=== PATIENT | male | born 1965 | race Asian ===

== ENCOUNTER 2019-04-20 07:48 | Day surgery (SDC) | payer OTHER ==
[2019-04-20] MEDS ORDERED: HYDROCORTISONE 100 MG INJ IV (09:00)
[2019-04-20] MEDS ORDERED: PROPOFOL 40 ML (09:28)
== END 2019-04-20 10:16 | disposition home or self-care (01) ==
LOC: GIL 07:48
DX: Z12.11 Encounter for screening for malignant neoplasm of colon (principal); K64.9 Unspecified hemorrhoids; G40.909 Epilepsy, unspecified, not intractable, without status epilepticus
CPT/HCPCS: 45378; 88305